=== PATIENT | male | born 1970 | race Caucasian/White ===

== ENCOUNTER 2021-11-03 03:05 | Emergency (ER) | payer OTHER ==
[~2021-11-03] VITALS: Ht 177.8 cm; Wt 104.3 kg
[2021-11-03] MEDS ORDERED: FLUTICASONE PRO16 GM (03:21)
[2021-11-03] MEDS ORDERED: IBU800 M1 PO (03:21)
[2021-11-03] MEDS ORDERED: Roxicodone5 MG PO (05:30)
[2021-11-03] MEDS ORDERED: Neurontin 300300 MG PO (05:30)
[2021-11-03] MEDS ORDERED: PSEUDOEPHEDRINE30 M1 PO (05:30)
== END 2021-11-03 05:46 | disposition home or self-care (01) ==
LOC: ER 03:05
DX: M54.16 Radiculopathy, lumbar region (principal); R10.32 Left lower quadrant pain; Z88.1 Allergy status to other antibiotic agents
CPT/HCPCS: 96372; 99283-25; A9270; J1885